=== PATIENT | female | born 1985 | race Two or more races ===

== ENCOUNTER 2019-01-21 15:15 | Observation (INO) | payer OTHER ==
[~2019-01-21] VITALS: Ht 172 cm; Wt 85.7 kg
== END 2019-01-21 17:20 | disposition home or self-care (01) ==
LOC: 4S 15:15
PROVIDERS: ADMIT Obstetrics & Gynecology; ATTEND Obstetrics & Gynecology
DX: O36.8330 Maternal care for abnormalities of the fetal heart rate or rhythm, third trimester, not applicable or unspecified (principal); Z3A.39 39 weeks gestation of pregnancy; Z88.0 Allergy status to penicillin
CPT/HCPCS: 36415; 81002; 83036; G0378

== ENCOUNTER 2019-01-30 09:40 | Inpatient (IN) | payer OTHER ==
[~2019-01-30] VITALS: Ht 172 cm; Wt 85.7 kg
[2019-01-30] MEDS ORDERED: RINGERS SOLUTION,LACTATED 1,000 ML IV PRN (10:53)
[2019-01-30] MEDS ORDERED: METHYLERGONOVINE MALEATE 0.2 MG/ML VIAL IM PRN (11:00)
[2019-01-30] MEDS ORDERED: CITRIC ACID/SODIUM CITRATE 30 ML SOLUTION UDCUP PO PRN (11:00)
[2019-01-30] MEDS ORDERED: METOCLOPRAMIDE HCL 5 MG/ML 2 ML VIAL IVP PRN (11:00)
[2019-01-30] MEDS ORDERED: DINOPROSTONE 10 MG VAGINAL SUPPOSITORY VG ONE (11:00)
[2019-01-30] MEDS ORDERED: PREN-217 PO (11:12)
[2019-01-30] MEDS ORDERED: SYNTH PO (11:12)
[2019-01-30 11:15] VITALS: BP 122/69
[2019-01-30 11:40] LABS: BASOPHILS % (AUTO) 0.2 % (0.0-2.0); EOSINOPHILS % (AUTO) 0.3 % (1.0-6.0); HEMATOCRIT 34.2 % (36-46); HEMOGLOBIN 11.2 g/dL (12.0-16.0); LYMPHOCYTES # (AUTO) 1.1 K/uL (1.0-4.8); LYMPHOCYTES % (AUTO) 14.1 % (22.0-44.0); MEAN CORPUSCULAR HEMOGLOBIN 30.5 pg (26.0-34.0); MEAN CORPUSCULAR HGB CONC 32.7 G/dL (31.0-37.0); MEAN CORPUSCULAR VOLUME 94 fL (80-100); MONOCYTES # (AUTO) 0.4 K/uL (0.1-1.0); MONOCYTES % (AUTO) 4.9 % (2.0-9.0); NEUTROPHILS # (AUTO) 6.5 K/uL (1.8-7.7); NEUTROPHILS % (AUTO) 80.5 % (40.0-70.0); PLATELET COUNT (AUTO) 232 K/uL (150-450); RED BLOOD CELL COUNT(AUTO) 3.65 MIL/uL (4.00-5.20); RED CELL DISTRIBUTION WIDTH 14.5 % (11.5-14.5)
[2019-01-30] MEDS: RINGERS SOLUTION,LACTATED 1,000 ML IV SCH ×2 (18:53→19:45)
[2019-01-30] MEDS ORDERED: OXYGEN THERAPY IH SCH (20:00)
[2019-01-30] MEDS ORDERED: -PHARMACY NOTE- MISC ONE (23:00)
[2019-01-31] MEDS ORDERED: MISOPROSTOL 50 MCG TABLET PO SCH ×2 (01:15→06:00)
[2019-01-31] MEDS ORDERED: OXYTOCIN 30 UNITS/LACT RINGERS 500 ML IV PRN (09:52)
[2019-01-31] MEDS: FentaNYL CITRATE-PF 100 MCG/2 ML VIAL IVP PRN ×3 (12:57→17:50)
[2019-01-31] MEDS ORDERED: ROPIVACAINE HCL/PF 0.2% 100 ML ED ONE (18:29)
[2019-01-31] MEDS: RINGERS SOLUTION,LACTATED 1,000 ML IV SCH (18:35)
[2019-01-31] MEDS ORDERED: ROPIVACAINE HCL/PF 0.2% 100 ML ED PRN (19:12)
[2019-01-31] MEDS ORDERED: ONDANSETRON HCL 4 MG/2 ML VIAL IVP PRN (19:15)
[2019-01-31] MEDS ORDERED: DiphenhydrAMINE HCL 50 MG/ML VIAL IVP PRN (19:15)
[2019-01-31] MEDS ORDERED: NALBUPHINE HCL 10 MG/ML VIAL IVP PRN (19:15)
[2019-02-01] MEDS: RINGERS SOLUTION,LACTATED 1,000 ML IV SCH (01:50)
[2019-02-01] MEDS ORDERED: CLINDAMYCIN 900 MG/D5% WATER 50 ML IV ONE (02:25)
[2019-02-01] MEDS ORDERED: GLYCERIN/WITCH HAZEL LEAF 40 PADS JAR TP PRN (04:15)
[2019-02-01] MEDS ORDERED: BENZOCAINE 20%/MENTHOL 56 GM SPRAY CANISTER TP PRN (04:15)
[2019-02-01] MEDS ORDERED: ACETAMINOPHEN/CODEINE 300-30 MG TABLET PO PRN ×2 (04:15)
[2019-02-01] MEDS ORDERED: LANOLIN 7 GM OINTMENT TP PRN (04:15)
[2019-02-01] MEDS: IBUPROFEN 800 MG TABLET PO SCH ×3 (05:42→20:08)
[2019-02-01] MEDS: MAGNESIUM HYDROXIDE SUSPENSION 30 ML UDCUP PO SCH ×2 (09:00→20:33)
[2019-02-01] MEDS: LEVOTHYROXINE SODIUM 50 MCG TABLET PO SCH (14:30)
[2019-02-01] MEDS ORDERED: SENNA/DOCUSATE SODIUM 8.6-50 MG TABLET PO ONE (15:15)
[2019-02-01] MEDS ORDERED: LEVO25TA9 PO (16:02)
[2019-02-02] MEDS: IBUPROFEN 800 MG TABLET PO SCH ×2 (01:52→08:29)
[2019-02-02] MEDS: LEVOTHYROXINE SODIUM 50 MCG TABLET PO SCH (06:11)
[2019-02-02] MEDS: MAGNESIUM HYDROXIDE SUSPENSION 30 ML UDCUP PO SCH (08:28)
[2019-02-02] MEDS ORDERED: ACET-66 PO (08:45)
[2019-02-02] MEDS ORDERED: IBUP-2070 PO (08:46)
[2019-02-02] MEDS ORDERED: DSS100 PO (08:47)
== END 2019-02-02 11:30 | disposition home or self-care (01) | DRG 807 ==
LOC: 4S 09:40 → OBSVTOIN 09:40
PROVIDERS: ADMIT Obstetrics & Gynecology; ATTEND Obstetrics & Gynecology
PROC: 10907ZC Drainage of Amniotic Fluid, Therapeutic from Products of Conception, Via Natural or Artificial Opening (ICD-10-PCS; principal; 2019-02-01)
PROC: 10D07Z6 Extraction of Products of Conception, Vacuum, Via Natural or Artificial Opening (ICD-10-PCS; 2019-02-01)
PROC: 0W8NXZZ Division of Female Perineum, External Approach (ICD-10-PCS; 2019-02-01)
PROC: 3E0R3BZ Introduction of Anesthetic Agent into Spinal Canal, Percutaneous Approach (ICD-10-PCS; 2019-02-01)
PROC: 00HU33Z Insertion of Infusion Device into Spinal Canal, Percutaneous Approach (ICD-10-PCS; 2019-02-01)
DX: O69.81X0 Labor and delivery complicated by cord around neck, without compression, not applicable or unspecified (principal); Z37.0 Single live birth; O66.5 Attempted application of vacuum extractor and forceps; Z3A.39 39 weeks gestation of pregnancy
CPT/HCPCS: 86850; 86900; 86901; J2590; J2795; J3010; J3490; J7120